=== PATIENT | male | born 1965 | race African-American/Black ===

== ENCOUNTER 2021-12-14 17:24 | Emergency (ER) | payer OTHER ==
[~2021-12-14] VITALS: Ht 167.6 cm; Wt 74.8 kg
[2021-12-14 20:46] LABS: RED BLOOD COUNT 2.29 M/UL (4.20-5.50); WHITE BLOOD COUNT 7.2 K/UL (4.5-11.0)
[2021-12-14 20:48] LABS: HEMOGLOBIN 6.8 gm/dl (14.0-17.5)
[2021-12-14 23:53] LABS: RED BLOOD COUNT 2.23 M/UL (4.20-5.50); WHITE BLOOD COUNT 7.4 K/UL (4.5-11.0)
[2021-12-14 23:58] LABS: HEMOGLOBIN 6.7 gm/dl (14.0-17.5)
== END 2021-12-15 09:35 ==
LOC: ER1 17:24
PROVIDERS: Emergency Medicine; Student in an Organized Health Care Education/Training Program
DX: N17.9 Acute kidney failure, unspecified (principal); D64.9 Anemia, unspecified; E87.5 Hyperkalemia; E87.2 Acidosis; Z20.822 Contact with and (suspected) exposure to COVID-19
CPT/HCPCS: 80048; 80053; 81001; 82272; 82550; 82553; 82607; 82728; 82746; 83036; 83540; 83550; 83735; 83970; 84100; 84484; 85025; 86850; 86900; 86901; 86920; 93005; 96365; 96372; 96375; 99285; J0610; J2550; J7030; J7050; J7070; J7120; U0002